=== PATIENT | male | born 1955 | race Two or more races ===

== ENCOUNTER 2019-11-15 11:49 | Inpatient (IN) | payer OTHER ==
[2019-12-14] MEDS ORDERED: GABAPENT PO (09:01)
[2019-12-14] MEDS ORDERED: LIPITOR40 M1 PO (09:02)
[2019-12-14] MEDS ORDERED: FORTAMET500 MG PO (09:02)
[2019-12-14] MEDS ORDERED: CANDESARTAN CILE8 MG PO (09:02)
[2019-12-21] MEDS ORDERED: NEURONTIN800 MG PO (16:11)
== END 2019-12-23 19:27 | DRG 470 ==
LOC: SURG 12-21 06:33 → O/R 12-21 06:33 → SURG 12-21 07:00
PROVIDERS: ADMIT Orthopaedic Surgery
PROC: 0SRD0J9 Replacement of Left Knee Joint with Synthetic Substitute, Cemented, Open Approach (ICD-10-PCS; principal; 2019-12-21 07:00)
DX: M17.12 Unilateral primary osteoarthritis, left knee (principal); D62 Acute posthemorrhagic anemia; E11.9 Type 2 diabetes mellitus without complications; I10 Essential (primary) hypertension